=== PATIENT | female | born 2005 | race Caucasian/White ===

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

== ENCOUNTER 2024-08-26 14:54 | Emergency (ER) | payer OTHER, SELFPAY ==
[2024-08-26] VITALS (40 sets, daily range): BP systolic 101–129; BP diastolic 61–85; PULSE 50–85; RESP 10–28; TEMP 36.8–36.9; O2SAT 93–100
--- NOTE | 2024-08-26 14:55 | ECG_ITS ---
Test Date: 2024-08-26 15:08:11 Measurements Intervals [place] Rate: 73 P: 73 WI: 157 QRS: 86 QRSD: 94 T: 61 QT: 394 QTc: 436 Interpretive Statements SINUS RHYTHM NORMAL ELECTROCARDIOGRAM No previous ECG available for comparison Electronically Signed On 08-27-2024 12:43:16 CDT by Santino Galindo M.D.
[2024-08-26 15:13] LABS: Basophils Absolute Auto 0.09 K/mm3 (0.00-0.10); Basophils Percent Auto 1.5 % (0.0-1.0); Eosinophils Absolute Auto 0.18 K/mm3 (0.02-0.50); Hematocrit 40.5 % (35.0-49.0); Hemoglobin 13.7 g/dL (12.0-15.0); Immature Granulocyte Absolute 0.02 K/mm3 (0.00-0.00); Immature Granulocyte Percent A 0.3 % (0.0-0.0); Lymphocytes Absolute Auto 1.72 K/mm3 (1.10-4.50); Lymphocytes Percent Auto 29.1 % (18.0-42.0); Mean Corpuscular HGB Conc 33.8 g/dL (32-36); Mean Corpuscular Hemoglobin 29.4 pg (27.0-31.0); Mean Corpuscular Volume 86.9 fL (78.0-102.0); Mean Platelet Volume 10.4 fl (9.2-11.8); Monocytes Absolute Auto 0.41 K/mm3 (0.10-0.90); Monocytes Percent Auto 6.9 % (2.0-11.0); Neutrophils Percent Auto 59.2 % (50.0-70.0); Platelet Count Result 166 K/mm3 (150-420); Red Blood Count 4.66 M/mm3 (4.20-5.40); Red Cell Distribution Width 14.5 % (11.6-14.4); White Blood Count 5.9 K/mm3 (4.8-10.8)
[2024-08-26 15:27] LABS: INR 1.1; Partial Thromboplastin Time 27.3 Sec (23.9-30.70); Prothrombin Time 11.9 Seconds (9.50-12.1)
--- NOTE | 2024-08-26 15:27 | PC.NURSE ---
1500 - poison control contacted. 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 supportive management. ativan for tremors or seizure activity. this information shared with erp
[2024-08-26 15:28] LABS: Add Urine Microscopic? NO; Appearance Urine Clear (Clear); Bilirubin Urine Negative (Negative); Blood Urine Negative (Negative); Color Urine Light Yellow (Yellow); Glucose Urine UA Negative (Negative); Ketones Urine Negative (Negative); Leukocyte Esterase Ur Negative LEU/UL (Negative); Nitrate Urine Negative (Negative); Protein Urine Negative (Negative); Specific Grav Ur 1.015 (1.010-1.020); Urobilinogen Urine 0.2 mg/dL (0.2-1.0); pH Urine 7.5 (5.0-8.0)
[2024-08-26 15:29] LABS: Salicylate 2.3 mg/dL (2.8-20.0)
[2024-08-26 15:30] LABS: Alanine Aminotransferase 18 U/L (14-59); Alkaline Phosphatase 62 U/L (50-130); Anion Gap 10 mmol/L (4-12); Aspartate Amino Transferase 14 U/L (15-37); Bilirubin,Total 0.5 mg/dL (0.00-1.00); Blood Urea Nitrogen 11 mg/dL (7-18); Calcium 9.5 mg/dL (8.5-10.1); Carbon Dioxide 25 mmol/L (21-32); Chloride 106 mmol/L (98-108); Estimated CRCL calculation 83 ml/min; Estimated Glomerular Filt Rate > 60; Ethanol < 3 mg/dL (0-6); Glucose 94 mg/dL (70-99); Osmolality Calculated 291 mOsm/kg (285-295); Potassium 3.8 mmol/L (3.5-5.1); Sodium 141 mmol/L (136-145); Total Protein 6.8 g/dL (6.4-8.2)
[2024-08-26 15:33] LABS: Amphetamine Screen Urine Negative (Negative); Benzodiazepines Screen Urine Negative (Negative); Cannabinoid Screen Urine Positive (Negative); Cocaine Screen Urine Negative (Negative); Methadone Screen Urine Negative (Negative); Opiate Screen Urine Negative (Negative); Phencyclidine Screen Urine Negative (Negative)
[2024-08-26 15:36] LABS: Acetaminophen 0 ug/mL (10-30)
[2024-08-26 15:41] LABS: Thyroid Stimulating Hormone Reflex 0.76 u/IU/mL (0.36-3.74)
--- NOTE | 2024-08-26 16:22 | ED.OVERDOSE ---
HPI - Overdose General Chief Complaint: Overdose Stated Complaint: overdose Time Seen by Provider: 08/26/24 14:55 Source: patient Mode of arrival: EMS Limitations: no limitations History of Present Illness HPI Narrative: this is a 18-year-old female that EMS was called to the home after the patient intentionally took 30 10mg BuSpar, patient states that she is not suicidal this is happened in the past and she is attention seeking. After evaluation the patient currently is stable vitals are stable at 1 18/82 heart rate of 68 respiratory rate of 14. The patient denies any chest pain no shortness of breath no nausea vomiting no palpitations. No tremors no altered mental status. complaint: intentional overdose Onset (ago): hour(s) Time: 14:00 Timing confirmed by: family member Intent: wanted to escape How Overdose Was Discovered: called family/friend Related Data Home Medications Medication Instructions Recorded Confirmed buspirone 10 mg tablet 10 mg PO BID 08/26/24 08/26/24 fluoxetine 20 mg capsule 20 mg PO DAILY 08/26/24 08/26/24 Allergies Allergy/AdvReac Type Severity Reaction Status Date / Time amoxicillin Allergy Hives Verified 08/26/24 15:00 Penicillins Allergy Hives Verified 08/26/24 15:00 Review of Systems Review of Systems: All systems reviewed & are unremarkable except as noted in HPI and below PMFSH Past Medical History Medical History Depression Drug overdose Patient denies medical problems Suicidal behavior Social History Social History Substance use: current Substance use type: does not use Exam Const: General: healthy appearing and no acute distress Nutritional Appearance: well nourished Orientation/consciousness: patient oriented x3 Limitations: no limitations HENMT: Head: normal to inspection Eyes: Conjunctivae: conjunctivae normal Pupils: Equal, round and reactive pupils present Neck: Neck: normal visual inspection Chest: Chest palpation & inspection: normal inspection of the chest Resp: Effort & Inspection: normal respiratory effort Auscultation: clear to auscultation bilaterally Cardio: Rate: regular rate Rhythm: regular rhythm GI: GI Palp: Yes Soft to palpation Auscultation: normal bowel sounds : General: Yes bladder normal to palpation Skin: General skin exam: normal color Rashes: no rashes Wounds: no wounds Neuro: General: patient oriented x3, moves all extremities and no meningeal signs Cranial nerves: Yes Nystagmus not present Speech: normal speech Extrem: General: normal to inspection and no clubbing, cyanosis or edema Psych: Affect: Sad affect present Course Course Emergency Course: Patient currently monitored on tele and doing well vital stable EKG shows normal sinus rhythm blood work performed and reviewed and within normal limits. Poison Control was called and recommendations were to monitor until 9:00 p.m.. Currently there is no tremors no palpitations no nausea vomiting no chest pain or shortness of breath. patient medically stable and locus Street notified, to evaluate patient. Patient not suicidal. After speaking with the mental health advised to go home with a safety plan and close follow-up. Vital Signs Vital signs: Vital Signs Temperature 36.9 C 08/26/24 14:55 Pulse Rate 84 08/26/24 14:55 Respiratory Rate 14 08/26/24 14:55 Blood Pressure 129/73 08/26/24 14:55 Pulse Oximetry 98 08/26/24 14:55 Oxygen Delivery Room Air 08/26/24 14:55 Temperature 36.9 C 08/26/24 14:55 Pulse Rate 50 L 08/26/24 19:30 Respiratory Rate 20 08/26/24 19:30 Blood Pressure 103/61 08/26/24 18:46 Pulse Oximetry 98 08/26/24 18:46 Oxygen Delivery Room Air 08/26/24 14:55 MDM - Overdose Lab Data 08/26/24 15:08 08/26/24 15:08 Labs: Lab Results 08/26/24 08/26/24 1
--- NOTE | 2024-08-26 19:41 | PC.NURSE ---
RECEIVED CALL FROM VIJAYA FROM CT POISON CONTROL, UPDATED WITH LAB WORK, EKG, AND PT STATUS WNL WITH SINUS JOSE @50 BPM AT THIS TIME. VIJAYA STATED TO NOTIFY HIM FOR CHANGES IN STATUS, OTHERWISE CASE WOULD BE CLOSED AT 2030 TODAY IF NO CHANGES PRIOR. DR PRITCHETT NOTIFIED.
== END 2024-08-26 23:18 | disposition home or self-care (01) ==
PROVIDERS: Emergency Provider Emergency Medicine; PCP Family Medicine
DX: T50.902A Poisoning by unspecified drugs, medicaments and biological substances, intentional self-harm, initial encounter (principal); F32.89 Other specified depressive episodes; Z79.899 Other long term (current) drug therapy
CPT/HCPCS: 36415; 80053; 80143; 80179; 80307; 81003; 82077; 84443; 85025; 85610; 85730; 93005; 99284

== ENCOUNTER 2024-08-27 11:52 | Emergency (ER) | payer OTHER, SELFPAY ==
[2024-08-27 11:58] VITALS: BP 136/81; PULSE 112; RESP 24; TEMP 37.4; O2SAT 100
--- NOTE | 2024-08-27 11:59 | ED.GENADULT ---
HPI - General Adult General Chief complaint: Anxiety Stated complaint: anxiety Time Seen by Provider: 08/27/24 11:59 Source: patient and family Mode of arrival: ambulatory Limitations: no limitations History of Present Illness HPI narrative: Seen yesterday in the in the ED after accidentally taking 30 buspirone brought by EMS released at around 9:00 p.m. last night told of follow-up with psych at [employer] today. Patient says she is having a panic attack attack and comes in with her mother. She has been locus [facility] yet. Woke up at 3:00 a.m. with panic attack shaking anxious. She took some marijuana try calm herself down. Denies any other substance use suicidal ideation or homicidal ideation. She feels nauseous but has not vomited. She has no other complaints Related Data Home Medications Medication Instructions Recorded Confirmed buspirone 10 mg tablet 10 mg PO BID 08/26/24 08/27/24 fluoxetine 20 mg capsule 40 mg PO DAILY 08/26/24 08/27/24 omeprazole 20 mg capsule,delayed 20 mg PO DAILY 08/27/24 08/27/24 release Allergies Allergy/AdvReac Type Severity Reaction Status Date / Time amoxicillin Allergy Hives Verified 08/27/24 11:56 Penicillins Allergy Hives Verified 08/27/24 11:56 Review of Systems Review of Systems: All systems reviewed & are unremarkable except as noted in HPI and below PMFSH Past Medical History Medical History Depression Drug overdose Patient denies medical problems Suicidal behavior Social History Social History Substance use: current Substance use type: marijuana Exam Narrative: White female patient with mild apparent distress.? Head normocephalic, atraumatic.? Eyes conjunctiva pink sclera nonicteric.? Extraocular movements are intact.? Ears externally normal.? Oropharynx is clear with moist mucous membranes without exudates.? Neck is supple nontender no lymphadenopathy.? Back is nontender.? Lungs are clear.? Heart is regular rate and rhythm without murmurs gallops or rubs.? Chest wall nontender. Abdomen is soft and nontender no hepatosplenomegaly or masses no CVA tenderness no abdominal bruits.? Extremities no cyanosis clubbing or edema.? Skin is warm and dry without rashes or lesions.? Neurological patient is alert and oriented x4.? Motor and sensory grossly intact.? Gait is normal. Course Vital Signs Vital signs: Vital Signs Temperature 37.4 C 08/27/24 11:58 Pulse Rate 112 H 08/27/24 11:58 Respiratory Rate 24 H 08/27/24 11:58 Blood Pressure 136/81 08/27/24 11:58 Pulse Oximetry 100 08/27/24 11:58 Oxygen Delivery Room Air 08/27/24 11:58 Temperature 37.4 C 08/27/24 11:58 Pulse Rate 112 H 08/27/24 11:58 Respiratory Rate 24 H 08/27/24 11:58 Blood Pressure 136/81 08/27/24 11:58 Pulse Oximetry 100 08/27/24 11:58 Oxygen Delivery Room Air 08/27/24 11:58 Medical Decision Making MDM Narrative Medical decision making narrative: Patient brought in by her mother placed in room 1 history and physical were performed. Independent Historian: ? Mother Differential Dx includes but not limited to: anxiety substance abuse depression Medications were Reviewed:? home meds reviewed? Medications treatments given: Ativan 1 mg Independently Interpreted by me:? External Source Review:?? Medical conditions/social Situation Impacting Patients Care:?? chronic depression history of panic attacks Shared decision Making:? evaluation discussed with patient and her mother all questions were asked and answered and they would follow the plan from last night and go to [facility] her psychiatric evaluation and continued outpatient treatment Discussed with ? Clinical impression:? ? anxiety panic attack recent accidental suicide attempt with buspirone last night ? Patient disposition: ? discharged t
[2024-08-27] MEDS: LORazepam (*CRX) 1 MG TABLET PO (12:06)
[2024-08-27 12:30] VITALS: BP 110/70; PULSE 100; RESP 20; O2SAT 98
--- NOTE | 2024-08-27 12:40 | PC.NURSE ---
PT DC TO CARE OF MOTHER. MOTHER IS TO TRANSPORT PT TO [facility] FOR EVALUATION. PT DENIES ANY SI OR HI. PT IS BECOMING MORE CALM UPON DC. IS TALKING ON CELL PHONE WITHOUT DISTRESS. MOTHER VERBALIZED UNDERSTANDING OF DC AND FOLLOW UP INSTRUCTIONS.
== END 2024-08-27 12:30 | disposition home or self-care (01) ==
LOC: CHSED 12:22
PROVIDERS: Emergency Provider Emergency Medicine; PCP Family Medicine
DX: F41.0 Panic disorder [episodic paroxysmal anxiety] (principal); F32.A Depression, unspecified; F41.9 Anxiety disorder, unspecified; F12.10 Cannabis abuse, uncomplicated; Z79.899 Other long term (current) drug therapy
CPT/HCPCS: 99283; A9270